=== PATIENT | female | born 1955 | race African-American/Black ===

== ENCOUNTER 2019-07-17 16:27 | Inpatient (IN) | payer OTHER ==
[~2019-07-17] VITALS: Ht 157.5 cm; Wt 98.0 kg
[2019-07-17 16:22] VITALS: BP 118/74
[2019-07-17] MEDS ORDERED: ALBUTEROL SULFATE HFA 90 MCG/PUFF 8 GM INHALER IH PRN (17:15)
[2019-07-17 18:08] VITALS: BP 118/74
[2019-07-17 18:15] LABS: BASOPHILS % (AUTO) 1.1 % (0.0-2.0); EOSINOPHILS % (AUTO) 1.5 % (1.0-6.0); HEMATOCRIT 44.7 % (36-46); HEMOGLOBIN 14.1 g/dL (12.0-16.0); LYMPHOCYTES # (AUTO) 1.4 K/uL (1.0-4.8); LYMPHOCYTES % (AUTO) 27.3 % (22.0-44.0); MEAN CORPUSCULAR HEMOGLOBIN 25.1 pg (26.0-34.0); MEAN CORPUSCULAR HGB CONC 31.5 G/dL (31.0-37.0); MEAN CORPUSCULAR VOLUME 80 fL (80-100); MONOCYTES # (AUTO) 0.4 K/uL (0.1-1.0); MONOCYTES % (AUTO) 7.7 % (2.0-9.0); NEUTROPHILS # (AUTO) 3.3 K/uL (1.8-7.7); NEUTROPHILS % (AUTO) 62.4 % (40.0-70.0); PLATELET COUNT (AUTO) 257 K/uL (150-450); RED BLOOD CELL COUNT(AUTO) 5.59 MIL/uL (4.00-5.20); RED CELL DISTRIBUTION WIDTH 14.5 % (11.5-14.5)
[2019-07-17 18:30] LABS: ALANINE AMINOTRANSFERASE 22 U/L (12-78); ALBUMIN 3.4 g/dL (3.4-5.0); ALKALINE PHOSPHATASE 101 U/L (46-116); ANION GAP 12 mmol/L (8-16); ASPARTATE AMINOTRANSFERASE 21 U/L (15-37); BILIRUBIN,TOTAL 0.3 mg/dL (0.1-1.0); CALCIUM, TOTAL 10.4 mg/dL (8.8-10.5); CARBON DIOXIDE 25 mmol/L (22-29); CHLORIDE 106 mmol/L (98-107); CREATININE 0.76 mg/dL (0.60-1.30); GLOMERULAR FILTR. RATE CALC > 60 mL/min (>60); GLUCOSE,RANDOM 66 mg/dL (70-110); POTASSIUM 4.3 mmol/L (3.5-5.1); SODIUM SERUM 143 mmol/L (136-145); TOTAL PROTEIN, SERUM 8.1 g/dL (6.4-8.2); UREA NITROGEN, BLOOD 20 mg/dL (7-18)
[2019-07-17 20:32] VITALS: BP 106/69
[2019-07-17] MEDS: SENNA 187 MG TABLET PO SCH (20:35)
[2019-07-17] MEDS: DOCUSATE SODIUM 100 MG CAPSULE PO SCH (20:35)
[2019-07-17] MEDS: FAMOTIDINE 20 MG TABLET PO SCH (20:35)
[2019-07-17] MEDS: CARVEDILOL 6.25 MG TABLET PO SCH (20:35)
[2019-07-17] MEDS: GABAPENTIN 100 MG CAPSULE PO SCH (20:35)
[2019-07-17] MEDS ORDERED: FLUTICASONE/VILANTEROL 100-25 MCG/INH INHALER [14] IH SCH (21:00)
[2019-07-18] VITALS: BP 116/80
[2019-07-18] MEDS: LISINOPRIL 10 MG TABLET PO SCH (09:00)
[2019-07-18] MEDS: FLUTICASONE/VILANTEROL 200-25 MCG/INH INHALER [14] IH SCH (09:08)
[2019-07-18] MEDS: DOCUSATE SODIUM 100 MG CAPSULE PO SCH ×2 (09:09→20:34)
[2019-07-18] MEDS: ENOXAPARIN SODIUM 40 MG/0.4 ML PF SYRINGE SQ SCH (09:09)
[2019-07-18] MEDS: CARVEDILOL 6.25 MG TABLET PO SCH ×3 (09:10→20:59)
[2019-07-18] MEDS: FUROSEMIDE 20 MG TABLET PO SCH (09:10)
[2019-07-18] MEDS: FAMOTIDINE 20 MG TABLET PO SCH ×2 (09:10→20:34)
[2019-07-18] MEDS: SPIRONOLACTONE 25 MG TABLET PO SCH (09:10)
[2019-07-18] MEDS: GABAPENTIN 100 MG CAPSULE PO SCH ×3 (09:10→20:34)
[2019-07-18] MEDS: ATORVASTATIN CALCIUM 40 MG TABLET PO SCH (09:10)
[2019-07-18] MEDS: CYANOCOBALAMIN 100 MCG TABLET PO SCH (09:11)
[2019-07-18] MEDS: ASPIRIN 81 MG CHEWABLE TABLET PO SCH (09:11)
[2019-07-18 09:35] VITALS: BP 129/77
[2019-07-18 12:20] VITALS: BP 104/59
[2019-07-18] MEDS: ISOSORBIDE MONONITRATE 60 MG ER TABLET PO SCH (12:21)
[2019-07-18 16:20] VITALS: BP 106/56
[2019-07-18] MEDS: ACETAMINOPHEN 325 MG TABLET PO PRN (17:02)
[2019-07-18 20:25] VITALS: BP 128/69
[2019-07-18] MEDS: SENNA 187 MG TABLET PO SCH (20:34)
[2019-07-19] VITALS: BP 116/69
[2019-07-19] MEDS: ACETAMINOPHEN 325 MG TABLET PO PRN ×2 (06:19→19:18)
[2019-07-19 07:15] VITALS: BP 111/73
[2019-07-19] MEDS: DOCUSATE SODIUM 100 MG CAPSULE PO SCH ×2 (08:24→19:19)
[2019-07-19] MEDS: ASPIRIN 81 MG CHEWABLE TABLET PO SCH (08:24)
[2019-07-19] MEDS: CARVEDILOL 6.25 MG TABLET PO SCH ×2 (08:24→19:19)
[2019-07-19] MEDS: GABAPENTIN 100 MG CAPSULE PO SCH ×3 (08:25→19:18)
[2019-07-19] MEDS: SPIRONOLACTONE 25 MG TABLET PO SCH (08:25)
[2019-07-19] MEDS: ISOSORBIDE MONONITRATE 60 MG ER TABLET PO SCH (08:25)
[2019-07-19] MEDS: LISINOPRIL 10 MG TABLET PO SCH (08:25)
[2019-07-19] MEDS: FUROSEMIDE 20 MG TABLET PO SCH (08:25)
[2019-07-19] MEDS: ENOXAPARIN SODIUM 40 MG/0.4 ML PF SYRINGE SQ SCH (08:25)
[2019-07-19] MEDS: ATORVASTATIN CALCIUM 40 MG TABLET PO SCH (08:25)
[2019-07-19] MEDS: CYANOCOBALAMIN 100 MCG TABLET PO SCH (08:25)
[2019-07-19] MEDS: FAMOTIDINE 20 MG TABLET PO SCH ×2 (08:25→19:19)
[2019-07-19] MEDS: FLUTICASONE/VILANTEROL 200-25 MCG/INH INHALER [14] IH SCH (08:25)
[2019-07-19 15:02] VITALS: BP 114/48
[2019-07-19 19:18] VITALS: BP 118/61
[2019-07-19] MEDS: SENNA 187 MG TABLET PO SCH (19:18)
[2019-07-20 00:15] VITALS: BP 119/56
[2019-07-20] MEDS: ACETAMINOPHEN 325 MG TABLET PO PRN ×2 (08:36→12:36)
[2019-07-20 09:00] VITALS: BP 112/65
[2019-07-20] MEDS ORDERED: DOCUSATE SODIUM 100 MG CAPSULE PO SCH (09:00)
[2019-07-20] MEDS: ISOSORBIDE MONONITRATE 60 MG ER TABLET PO SCH (09:10)
[2019-07-20] MEDS: ATORVASTATIN CALCIUM 40 MG TABLET PO SCH (09:10)
[2019-07-20] MEDS: SPIRONOLACTONE 25 MG TABLET PO SCH (09:10)
[2019-07-20] MEDS: FLUTICASONE/VILANTEROL 200-25 MCG/INH INHALER [14] IH SCH (09:10)
[2019-07-20] MEDS: FAMOTIDINE 20 MG TABLET PO SCH ×2 (09:12→20:19)
[2019-07-20] MEDS: FUROSEMIDE 20 MG TABLET PO SCH (09:12)
[2019-07-20] MEDS: CYANOCOBALAMIN 100 MCG TABLET PO SCH (09:12)
[2019-07-20] MEDS: LISINOPRIL 10 MG TABLET PO SCH (09:14)
[2019-07-20] MEDS: ASPIRIN 81 MG CHEWABLE TABLET PO SCH (09:14)
[2019-07-20] MEDS: CARVEDILOL 6.25 MG TABLET PO SCH ×2 (09:14→20:39)
[2019-07-20] MEDS: ENOXAPARIN SODIUM 40 MG/0.4 ML PF SYRINGE SQ SCH (09:15)
[2019-07-20] MEDS: GABAPENTIN 100 MG CAPSULE PO SCH ×3 (09:18→20:19)
[2019-07-20] MEDS: DOCUSATE SODIUM 250 MG CAPSULE PO SCH ×2 (10:28→20:19)
[2019-07-20 19:20] VITALS: BP 144/76
[2019-07-20] MEDS ORDERED: NITROGLYCERIN 0.4 MG SUBLINGUAL TABLET #25 SL PRN (19:30)
[2019-07-20 20:19] VITALS: BP 139/77
[2019-07-20] MEDS: SENNA 187 MG TABLET PO SCH (20:19)
[2019-07-21 05:30] VITALS: BP 117/53
[2019-07-21] MEDS: ACETAMINOPHEN 325 MG TABLET PO PRN ×3 (05:30→20:39)
[2019-07-21 07:46] VITALS: BP 143/85
[2019-07-21] MEDS: FAMOTIDINE 20 MG TABLET PO SCH ×2 (08:19→20:27)
[2019-07-21] MEDS: DOCUSATE SODIUM 250 MG CAPSULE PO SCH ×2 (08:20→20:27)
[2019-07-21] MEDS: ENOXAPARIN SODIUM 40 MG/0.4 ML PF SYRINGE SQ SCH (08:20)
[2019-07-21] MEDS: GABAPENTIN 100 MG CAPSULE PO SCH ×3 (08:20→20:27)
[2019-07-21] MEDS: FUROSEMIDE 20 MG TABLET PO SCH (08:21)
[2019-07-21] MEDS: ATORVASTATIN CALCIUM 40 MG TABLET PO SCH (08:21)
[2019-07-21] MEDS: LISINOPRIL 10 MG TABLET PO SCH (08:21)
[2019-07-21] MEDS: CARVEDILOL 6.25 MG TABLET PO SCH ×2 (08:21→20:27)
[2019-07-21] MEDS: CYANOCOBALAMIN 100 MCG TABLET PO SCH (08:21)
[2019-07-21] MEDS: ISOSORBIDE MONONITRATE 60 MG ER TABLET PO SCH (08:22)
[2019-07-21] MEDS: SPIRONOLACTONE 25 MG TABLET PO SCH (08:22)
[2019-07-21] MEDS: ASPIRIN 81 MG CHEWABLE TABLET PO SCH (08:22)
[2019-07-21] MEDS: FLUTICASONE/VILANTEROL 200-25 MCG/INH INHALER [14] IH SCH (08:22)
[2019-07-21] MEDS: DICLOFENAC SODIUM 1% 100 GM GEL [4GM] TP SCH ×2 (15:27→20:28)
[2019-07-21 15:40] VITALS: BP 110/57
[2019-07-21] MEDS: MELATONIN 5 MG TABLET PO PRN (20:27)
[2019-07-21] MEDS: SENNA 187 MG TABLET PO SCH (20:28)
[2019-07-21 20:39] VITALS: BP 124/76
[2019-07-21 21:31] VITALS: BP 132/76
[2019-07-22] MEDS ORDERED: METO-558 PO (05:11)
[2019-07-22] MEDS ORDERED: ATOR40TA28 PO (05:11)
[2019-07-22] MEDS ORDERED: ISOS60TA4 PO (05:11)
[2019-07-22] MEDS ORDERED: GABA-529 PO (05:11)
[2019-07-22] MEDS ORDERED: CHL25 PO (05:11)
[2019-07-22] MEDS ORDERED: CYAN100T3 PO ×2 (05:11→18:02)
[2019-07-22] MEDS: ACETAMINOPHEN 325 MG TABLET PO PRN ×2 (07:07→15:50)
[2019-07-22 07:08] VITALS: BP 129/72
[2019-07-22] MEDS: DICLOFENAC SODIUM 1% 100 GM GEL [4GM] TP SCH ×3 (08:03→20:35)
[2019-07-22] MEDS: GABAPENTIN 100 MG CAPSULE PO SCH ×3 (08:03→20:36)
[2019-07-22] MEDS: FLUTICASONE/VILANTEROL 200-25 MCG/INH INHALER [14] IH SCH (08:03)
[2019-07-22] MEDS: CYANOCOBALAMIN 100 MCG TABLET PO SCH (08:04)
[2019-07-22] MEDS: SPIRONOLACTONE 25 MG TABLET PO SCH (08:04)
[2019-07-22] MEDS: CARVEDILOL 6.25 MG TABLET PO SCH ×2 (08:04→20:35)
[2019-07-22] MEDS: ISOSORBIDE MONONITRATE 60 MG ER TABLET PO SCH (08:04)
[2019-07-22] MEDS: ATORVASTATIN CALCIUM 40 MG TABLET PO SCH (08:04)
[2019-07-22] MEDS: FAMOTIDINE 20 MG TABLET PO SCH ×2 (08:04→20:35)
[2019-07-22] MEDS: LISINOPRIL 10 MG TABLET PO SCH (08:04)
[2019-07-22] MEDS: FUROSEMIDE 20 MG TABLET PO SCH (08:04)
[2019-07-22] MEDS: ASPIRIN 81 MG CHEWABLE TABLET PO SCH (08:04)
[2019-07-22] MEDS: DOCUSATE SODIUM 250 MG CAPSULE PO SCH ×2 (08:04→20:35)
[2019-07-22] MEDS: ENOXAPARIN SODIUM 40 MG/0.4 ML PF SYRINGE SQ SCH (08:40)
[2019-07-22] MEDS: MULTIVITAMINS WITH MINERALS, THERAPEUTIC TABLET PO SCH (11:51)
[2019-07-22 15:19] VITALS: BP 128/78
[2019-07-22] MEDS ORDERED: NITR0.4T50 SL (18:02)
[2019-07-22] MEDS ORDERED: ALBU8HFA IH (18:53)
[2019-07-22] MEDS ORDERED: MOME13HF2 IH (18:53)
[2019-07-22] MEDS: SENNA 187 MG TABLET PO SCH (20:35)
[2019-07-22] MEDS: MELATONIN 5 MG TABLET PO PRN (20:35)
[2019-07-22 21:44] VITALS: BP 137/84
[2019-07-23 03:08] VITALS: BP 130/73
[2019-07-23 07:46] VITALS: BP 128/58
[2019-07-23] MEDS: FLUTICASONE/VILANTEROL 200-25 MCG/INH INHALER [14] IH SCH (08:34)
[2019-07-23] MEDS: FAMOTIDINE 20 MG TABLET PO SCH ×2 (08:34→20:19)
[2019-07-23] MEDS: GABAPENTIN 100 MG CAPSULE PO SCH ×3 (08:34→20:19)
[2019-07-23] MEDS: ENOXAPARIN SODIUM 40 MG/0.4 ML PF SYRINGE SQ SCH (08:34)
[2019-07-23] MEDS: CARVEDILOL 6.25 MG TABLET PO SCH ×2 (08:34→20:19)
[2019-07-23] MEDS: ATORVASTATIN CALCIUM 40 MG TABLET PO SCH (08:34)
[2019-07-23] MEDS: DOCUSATE SODIUM 250 MG CAPSULE PO SCH ×2 (08:35→20:19)
[2019-07-23] MEDS: ISOSORBIDE MONONITRATE 60 MG ER TABLET PO SCH (08:35)
[2019-07-23] MEDS: SPIRONOLACTONE 25 MG TABLET PO SCH (08:35)
[2019-07-23] MEDS: CYANOCOBALAMIN 100 MCG TABLET PO SCH (08:35)
[2019-07-23] MEDS: LISINOPRIL 10 MG TABLET PO SCH (08:35)
[2019-07-23] MEDS: MULTIVITAMINS WITH MINERALS, THERAPEUTIC TABLET PO SCH (08:35)
[2019-07-23] MEDS: ASPIRIN 81 MG CHEWABLE TABLET PO SCH (08:35)
[2019-07-23] MEDS: DICLOFENAC SODIUM 1% 100 GM GEL [4GM] TP SCH ×3 (08:36→20:19)
[2019-07-23] MEDS: FUROSEMIDE 20 MG TABLET PO SCH (08:36)
[2019-07-23] MEDS ORDERED: POLYETHYLENE GLYCOL 3350 17 GM PACKET PO PRN (14:30)
[2019-07-23 15:28] VITALS: BP 116/63
[2019-07-23 16:49] VITALS: BP 129/68
[2019-07-23] MEDS: MELATONIN 5 MG TABLET PO PRN (20:19)
[2019-07-23] MEDS: SENNA 187 MG TABLET PO SCH (20:19)
[2019-07-23 21:09] VITALS: BP 129/68
[2019-07-24 04:49] VITALS: BP 113/60
[2019-07-24] MEDS: ACETAMINOPHEN 325 MG TABLET PO PRN ×2 (04:49→09:26)
[2019-07-24 07:44] VITALS: BP 148/89
[2019-07-24] MEDS: LISINOPRIL 10 MG TABLET PO SCH (07:51)
[2019-07-24] MEDS: ENOXAPARIN SODIUM 40 MG/0.4 ML PF SYRINGE SQ SCH (07:51)
[2019-07-24] MEDS: MULTIVITAMINS WITH MINERALS, THERAPEUTIC TABLET PO SCH (07:51)
[2019-07-24] MEDS: SPIRONOLACTONE 25 MG TABLET PO SCH (07:51)
[2019-07-24] MEDS: FAMOTIDINE 20 MG TABLET PO SCH ×2 (07:51→20:21)
[2019-07-24] MEDS: DICLOFENAC SODIUM 1% 100 GM GEL [4GM] TP SCH ×3 (07:51→20:21)
[2019-07-24] MEDS: ISOSORBIDE MONONITRATE 60 MG ER TABLET PO SCH (07:52)
[2019-07-24] MEDS: FUROSEMIDE 20 MG TABLET PO SCH (07:52)
[2019-07-24] MEDS: ASPIRIN 81 MG CHEWABLE TABLET PO SCH (07:52)
[2019-07-24] MEDS: GABAPENTIN 100 MG CAPSULE PO SCH ×3 (07:52→20:21)
[2019-07-24] MEDS: CARVEDILOL 6.25 MG TABLET PO SCH ×2 (07:52→20:21)
[2019-07-24] MEDS: ATORVASTATIN CALCIUM 40 MG TABLET PO SCH (07:52)
[2019-07-24] MEDS: FLUTICASONE/VILANTEROL 200-25 MCG/INH INHALER [14] IH SCH (07:52)
[2019-07-24] MEDS: DOCUSATE SODIUM 250 MG CAPSULE PO SCH ×2 (07:52→20:21)
[2019-07-24] MEDS: CYANOCOBALAMIN 100 MCG TABLET PO SCH (07:53)
[2019-07-24 16:11] VITALS: BP 145/72
[2019-07-24] MEDS: MELATONIN 5 MG TABLET PO PRN (20:21)
[2019-07-24] MEDS: SENNA 187 MG TABLET PO SCH (20:21)
[2019-07-24 21:03] VITALS: BP 139/70
[2019-07-25 04:06] VITALS: BP 134/56
[2019-07-25] MEDS: ACETAMINOPHEN 325 MG TABLET PO PRN (08:00)
[2019-07-25 08:05] VITALS: BP 154/99
[2019-07-25] MEDS: FLUTICASONE/VILANTEROL 200-25 MCG/INH INHALER [14] IH SCH (08:17)
[2019-07-25] MEDS: GABAPENTIN 100 MG CAPSULE PO SCH ×3 (08:18→20:23)
[2019-07-25] MEDS: CARVEDILOL 6.25 MG TABLET PO SCH ×2 (08:18→20:24)
[2019-07-25] MEDS: MULTIVITAMINS WITH MINERALS, THERAPEUTIC TABLET PO SCH (08:18)
[2019-07-25] MEDS: FAMOTIDINE 20 MG TABLET PO SCH ×2 (08:18→20:24)
[2019-07-25] MEDS: FUROSEMIDE 20 MG TABLET PO SCH (08:18)
[2019-07-25] MEDS: DOCUSATE SODIUM 250 MG CAPSULE PO SCH ×2 (08:18→20:27)
[2019-07-25] MEDS: LISINOPRIL 10 MG TABLET PO SCH (08:18)
[2019-07-25] MEDS: ATORVASTATIN CALCIUM 40 MG TABLET PO SCH (08:18)
[2019-07-25] MEDS: ASPIRIN 81 MG CHEWABLE TABLET PO SCH (08:18)
[2019-07-25] MEDS: ENOXAPARIN SODIUM 40 MG/0.4 ML PF SYRINGE SQ SCH (08:18)
[2019-07-25] MEDS: DICLOFENAC SODIUM 1% 100 GM GEL [4GM] TP SCH ×3 (08:18→20:24)
[2019-07-25] MEDS: ISOSORBIDE MONONITRATE 60 MG ER TABLET PO SCH (08:19)
[2019-07-25] MEDS: SPIRONOLACTONE 25 MG TABLET PO SCH (08:19)
[2019-07-25] MEDS: CYANOCOBALAMIN 100 MCG TABLET PO SCH (08:19)
[2019-07-25] MEDS ORDERED: KETOROLAC TROMETHAMINE 15 MG/ML VIAL IM ONE (10:00)
[2019-07-25 16:20] VITALS: BP 147/80
[2019-07-25] MEDS: MELATONIN 5 MG TABLET PO PRN (20:23)
[2019-07-25] MEDS: SENNA 187 MG TABLET PO SCH (20:24)
[2019-07-25 21:58] VITALS: BP 150/81
[2019-07-26 03:32] VITALS: BP 145/73
[2019-07-26] MEDS: DOCUSATE SODIUM 250 MG CAPSULE PO SCH ×2 (08:26→20:22)
[2019-07-26] MEDS: ENOXAPARIN SODIUM 40 MG/0.4 ML PF SYRINGE SQ SCH (08:26)
[2019-07-26] MEDS: FLUTICASONE/VILANTEROL 200-25 MCG/INH INHALER [14] IH SCH (08:26)
[2019-07-26] MEDS: ISOSORBIDE MONONITRATE 60 MG ER TABLET PO SCH (08:26)
[2019-07-26] MEDS: MULTIVITAMINS WITH MINERALS, THERAPEUTIC TABLET PO SCH (08:26)
[2019-07-26] MEDS: ATORVASTATIN CALCIUM 40 MG TABLET PO SCH (08:27)
[2019-07-26] MEDS: FAMOTIDINE 20 MG TABLET PO SCH ×2 (08:27→20:21)
[2019-07-26] MEDS: LISINOPRIL 10 MG TABLET PO SCH (08:27)
[2019-07-26] MEDS: CARVEDILOL 6.25 MG TABLET PO SCH ×2 (08:27→20:22)
[2019-07-26] MEDS: CYANOCOBALAMIN 100 MCG TABLET PO SCH (08:27)
[2019-07-26] MEDS: ASPIRIN 81 MG CHEWABLE TABLET PO SCH (08:27)
[2019-07-26] MEDS: GABAPENTIN 100 MG CAPSULE PO SCH ×3 (08:27→20:22)
[2019-07-26 08:30] VITALS: BP 142/76
[2019-07-26] MEDS: DICLOFENAC SODIUM 1% 100 GM GEL [4GM] TP SCH ×3 (08:30→20:20)
[2019-07-26] MEDS: ACETAMINOPHEN 325 MG TABLET PO PRN (08:30)
[2019-07-26] MEDS: FUROSEMIDE 20 MG TABLET PO SCH (08:30)
[2019-07-26] MEDS: SPIRONOLACTONE 25 MG TABLET PO SCH (10:02)
[2019-07-26] MEDS ORDERED: KETOROLAC TROMETHAMINE 15 MG/ML VIAL IM ONE (10:45)
[2019-07-26 11:10] LABS: BASOPHILS % (AUTO) 1.2 % (0.0-2.0); EOSINOPHILS % (AUTO) 1.2 % (1.0-6.0); HEMATOCRIT 40.6 % (36-46); HEMOGLOBIN 12.9 g/dL (12.0-16.0); LYMPHOCYTES # (AUTO) 1.2 K/uL (1.0-4.8); LYMPHOCYTES % (AUTO) 26.6 % (22.0-44.0); MEAN CORPUSCULAR HEMOGLOBIN 25.4 pg (26.0-34.0); MEAN CORPUSCULAR HGB CONC 31.8 G/dL (31.0-37.0); MEAN CORPUSCULAR VOLUME 80 fL (80-100); MONOCYTES # (AUTO) 0.4 K/uL (0.1-1.0); MONOCYTES % (AUTO) 9.2 % (2.0-9.0); NEUTROPHILS # (AUTO) 2.7 K/uL (1.8-7.7); NEUTROPHILS % (AUTO) 61.8 % (40.0-70.0); PLATELET COUNT (AUTO) 257 K/uL (150-450); RED BLOOD CELL COUNT(AUTO) 5.09 MIL/uL (4.00-5.20)
[2019-07-26 11:20] LABS: ANION GAP 5 mmol/L (8-16); CALCIUM, TOTAL 9.7 mg/dL (8.8-10.5); CARBON DIOXIDE 29 mmol/L (22-29); CHLORIDE 111 mmol/L (98-107); CREATININE 0.85 mg/dL (0.60-1.30); GLOMERULAR FILTR. RATE CALC > 60 mL/min (>60); GLUCOSE,RANDOM 86 mg/dL (70-110); SODIUM SERUM 145 mmol/L (136-145); UREA NITROGEN, BLOOD 14 mg/dL (7-18)
[2019-07-26 16:07] VITALS: BP 133/71
[2019-07-26 20:20] VITALS: BP 127/72
[2019-07-26] MEDS: SENNA 187 MG TABLET PO SCH (20:22)
[2019-07-26] MEDS: MELATONIN 5 MG TABLET PO PRN (20:22)
[2019-07-27 03:15] VITALS: BP 142/73
[2019-07-27 08:52] VITALS: BP 130/86
[2019-07-27] MEDS: DICLOFENAC SODIUM 1% 100 GM GEL [4GM] TP SCH ×3 (08:52→19:56)
[2019-07-27] MEDS: ACETAMINOPHEN 325 MG TABLET PO PRN ×2 (08:52→20:08)
[2019-07-27] MEDS: FLUTICASONE/VILANTEROL 200-25 MCG/INH INHALER [14] IH SCH (08:52)
[2019-07-27] MEDS: FAMOTIDINE 20 MG TABLET PO SCH ×2 (08:52→19:56)
[2019-07-27] MEDS: ENOXAPARIN SODIUM 40 MG/0.4 ML PF SYRINGE SQ SCH (08:52)
[2019-07-27] MEDS: LISINOPRIL 10 MG TABLET PO SCH (08:53)
[2019-07-27] MEDS: MULTIVITAMINS WITH MINERALS, THERAPEUTIC TABLET PO SCH (08:53)
[2019-07-27] MEDS: GABAPENTIN 100 MG CAPSULE PO SCH ×3 (08:53→19:56)
[2019-07-27] MEDS: ATORVASTATIN CALCIUM 40 MG TABLET PO SCH (08:53)
[2019-07-27] MEDS: DOCUSATE SODIUM 250 MG CAPSULE PO SCH ×2 (08:53→19:56)
[2019-07-27] MEDS: ASPIRIN 81 MG CHEWABLE TABLET PO SCH (08:53)
[2019-07-27] MEDS: SPIRONOLACTONE 25 MG TABLET PO SCH (08:53)
[2019-07-27] MEDS: CYANOCOBALAMIN 100 MCG TABLET PO SCH (08:53)
[2019-07-27] MEDS: FUROSEMIDE 20 MG TABLET PO SCH (08:54)
[2019-07-27] MEDS: ISOSORBIDE MONONITRATE 60 MG ER TABLET PO SCH (09:00)
[2019-07-27] MEDS: CARVEDILOL 6.25 MG TABLET PO SCH ×2 (09:00→19:56)
[2019-07-27 16:03] VITALS: BP 122/85
[2019-07-27 19:56] VITALS: BP 124/72
[2019-07-27] MEDS: MELATONIN 5 MG TABLET PO PRN (19:56)
[2019-07-27] MEDS: SENNA 187 MG TABLET PO SCH (19:56)
[2019-07-28 01:00] VITALS: BP 141/83
[2019-07-28 07:42] VITALS: BP 143/92
[2019-07-28] MEDS: CYANOCOBALAMIN 100 MCG TABLET PO SCH (08:03)
[2019-07-28] MEDS: DOCUSATE SODIUM 250 MG CAPSULE PO SCH ×2 (08:03→20:05)
[2019-07-28] MEDS: ENOXAPARIN SODIUM 40 MG/0.4 ML PF SYRINGE SQ SCH (08:03)
[2019-07-28] MEDS: GABAPENTIN 100 MG CAPSULE PO SCH ×3 (08:03→20:05)
[2019-07-28] MEDS: FLUTICASONE/VILANTEROL 200-25 MCG/INH INHALER [14] IH SCH (08:03)
[2019-07-28] MEDS: ATORVASTATIN CALCIUM 40 MG TABLET PO SCH (08:03)
[2019-07-28] MEDS: MULTIVITAMINS WITH MINERALS, THERAPEUTIC TABLET PO SCH (08:03)
[2019-07-28] MEDS: LISINOPRIL 10 MG TABLET PO SCH (08:04)
[2019-07-28] MEDS: FUROSEMIDE 20 MG TABLET PO SCH (08:04)
[2019-07-28] MEDS: ISOSORBIDE MONONITRATE 60 MG ER TABLET PO SCH (08:04)
[2019-07-28] MEDS: FAMOTIDINE 20 MG TABLET PO SCH ×2 (08:04→20:04)
[2019-07-28] MEDS: ASPIRIN 81 MG CHEWABLE TABLET PO SCH (08:04)
[2019-07-28] MEDS: SPIRONOLACTONE 25 MG TABLET PO SCH (08:05)
[2019-07-28] MEDS: CARVEDILOL 6.25 MG TABLET PO SCH ×2 (08:05→20:05)
[2019-07-28] MEDS: DICLOFENAC SODIUM 1% 100 GM GEL [4GM] TP SCH ×3 (09:28→20:04)
[2019-07-28 09:48] VITALS: BP 137/76
[2019-07-28 16:00] VITALS: BP 116/56
[2019-07-28] MEDS: ACETAMINOPHEN 325 MG TABLET PO PRN (16:00)
[2019-07-28 20:00] VITALS: BP 118/56
[2019-07-28] MEDS: MELATONIN 5 MG TABLET PO PRN (20:05)
[2019-07-28] MEDS: SENNA 187 MG TABLET PO SCH (20:05)
[2019-07-29 02:13] VITALS: BP 130/70
[2019-07-29] MEDS: MULTIVITAMINS WITH MINERALS, THERAPEUTIC TABLET PO SCH (08:04)
[2019-07-29] MEDS: DICLOFENAC SODIUM 1% 100 GM GEL [4GM] TP SCH ×3 (08:04→20:55)
[2019-07-29] MEDS: ENOXAPARIN SODIUM 40 MG/0.4 ML PF SYRINGE SQ SCH (08:04)
[2019-07-29] MEDS: ACETAMINOPHEN 325 MG TABLET PO PRN ×2 (08:05→20:55)
[2019-07-29] MEDS: FAMOTIDINE 20 MG TABLET PO SCH ×2 (08:05→20:56)
[2019-07-29] MEDS: ATORVASTATIN CALCIUM 40 MG TABLET PO SCH (08:05)
[2019-07-29] MEDS: FUROSEMIDE 20 MG TABLET PO SCH (08:05)
[2019-07-29] MEDS: CARVEDILOL 6.25 MG TABLET PO SCH ×2 (08:05→20:56)
[2019-07-29] MEDS: DOCUSATE SODIUM 250 MG CAPSULE PO SCH ×2 (08:06→20:56)
[2019-07-29] MEDS: ASPIRIN 81 MG CHEWABLE TABLET PO SCH (08:06)
[2019-07-29] MEDS: CYANOCOBALAMIN 100 MCG TABLET PO SCH (08:06)
[2019-07-29] MEDS: GABAPENTIN 100 MG CAPSULE PO SCH ×3 (08:06→20:56)
[2019-07-29] MEDS: LISINOPRIL 10 MG TABLET PO SCH (08:06)
[2019-07-29] MEDS: ISOSORBIDE MONONITRATE 60 MG ER TABLET PO SCH (08:07)
[2019-07-29] MEDS: SPIRONOLACTONE 25 MG TABLET PO SCH (08:08)
[2019-07-29 08:23] VITALS: BP 146/88
[2019-07-29] MEDS: FLUTICASONE/VILANTEROL 200-25 MCG/INH INHALER [14] IH SCH (13:14)
[2019-07-29 16:30] VITALS: BP 128/91
[2019-07-29 20:55] VITALS: BP 148/90
[2019-07-29] MEDS: SENNA 187 MG TABLET PO SCH (20:56)
[2019-07-29] MEDS: MELATONIN 5 MG TABLET PO PRN (20:56)
[2019-07-30 01:30] VITALS: BP 140/90
[2019-07-30 06:54] LABS: EOSINOPHILS % (AUTO) 1.3 % (1.0-6.0); HEMATOCRIT 40.9 % (36-46); LYMPHOCYTES # (AUTO) 1.7 K/uL (1.0-4.8); LYMPHOCYTES % (AUTO) 27.4 % (22.0-44.0); MEAN CORPUSCULAR HEMOGLOBIN 24.8 pg (26.0-34.0); MEAN CORPUSCULAR HGB CONC 30.7 G/dL (31.0-37.0); MEAN CORPUSCULAR VOLUME 81 fL (80-100); MONOCYTES # (AUTO) 0.7 K/uL (0.1-1.0); MONOCYTES % (AUTO) 11.4 % (2.0-9.0); NEUTROPHILS # (AUTO) 3.7 K/uL (1.8-7.7); NEUTROPHILS % (AUTO) 58.9 % (40.0-70.0); PLATELET COUNT (AUTO) 232 K/uL (150-450); RED BLOOD CELL COUNT(AUTO) 5.08 MIL/uL (4.00-5.20); RED CELL DISTRIBUTION WIDTH 15.1 % (11.5-14.5)
[2019-07-30 07:15] LABS: ANION GAP 7 mmol/L (8-16); CALCIUM, TOTAL 9.5 mg/dL (8.8-10.5); CARBON DIOXIDE 27 mmol/L (22-29); CHLORIDE 110 mmol/L (98-107); CREATININE 0.78 mg/dL (0.60-1.30); GLOMERULAR FILTR. RATE CALC > 60 mL/min (>60); GLUCOSE,RANDOM 91 mg/dL (70-110); POTASSIUM 3.9 mmol/L (3.5-5.1); SODIUM SERUM 144 mmol/L (136-145); UREA NITROGEN, BLOOD 15 mg/dL (7-18)
[2019-07-30] MEDS: ISOSORBIDE MONONITRATE 60 MG ER TABLET PO SCH (08:25)
[2019-07-30] MEDS: FAMOTIDINE 20 MG TABLET PO SCH ×2 (08:25→21:14)
[2019-07-30] MEDS: SPIRONOLACTONE 25 MG TABLET PO SCH (08:25)
[2019-07-30] MEDS: ENOXAPARIN SODIUM 40 MG/0.4 ML PF SYRINGE SQ SCH (08:25)
[2019-07-30] MEDS: LISINOPRIL 10 MG TABLET PO SCH (08:25)
[2019-07-30] MEDS: DICLOFENAC SODIUM 1% 100 GM GEL [4GM] TP SCH ×3 (08:25→21:14)
[2019-07-30] MEDS: FLUTICASONE/VILANTEROL 200-25 MCG/INH INHALER [14] IH SCH (08:25)
[2019-07-30] MEDS: GABAPENTIN 100 MG CAPSULE PO SCH ×3 (08:26→21:15)
[2019-07-30] MEDS: ATORVASTATIN CALCIUM 40 MG TABLET PO SCH (08:26)
[2019-07-30] MEDS: DOCUSATE SODIUM 250 MG CAPSULE PO SCH ×2 (08:26→21:14)
[2019-07-30] MEDS: MULTIVITAMINS WITH MINERALS, THERAPEUTIC TABLET PO SCH (08:26)
[2019-07-30] MEDS: CARVEDILOL 6.25 MG TABLET PO SCH ×2 (08:26→21:15)
[2019-07-30] MEDS: CYANOCOBALAMIN 100 MCG TABLET PO SCH (08:26)
[2019-07-30 08:27] VITALS: BP 145/73
[2019-07-30] MEDS: ASPIRIN 81 MG CHEWABLE TABLET PO SCH (08:27)
[2019-07-30] MEDS: FUROSEMIDE 20 MG TABLET PO SCH (08:29)
[2019-07-30 16:00] VITALS: BP 140/68
[2019-07-30 21:10] VITALS: BP 130/73
[2019-07-30] MEDS: MELATONIN 5 MG TABLET PO PRN (21:14)
[2019-07-30] MEDS: SENNA 187 MG TABLET PO SCH (21:15)
[2019-07-30] MEDS: ACETAMINOPHEN 325 MG TABLET PO PRN (21:19)
[2019-07-31 00:53] VITALS: BP 122/60
[2019-07-31 07:30] VITALS: BP 143/90
[2019-07-31] MEDS: CARVEDILOL 6.25 MG TABLET PO SCH ×2 (07:51→20:20)
[2019-07-31] MEDS: ASPIRIN 81 MG CHEWABLE TABLET PO SCH (07:51)
[2019-07-31] MEDS: FAMOTIDINE 20 MG TABLET PO SCH ×2 (07:51→20:20)
[2019-07-31] MEDS: ATORVASTATIN CALCIUM 40 MG TABLET PO SCH (07:51)
[2019-07-31] MEDS: GABAPENTIN 100 MG CAPSULE PO SCH ×3 (07:51→20:20)
[2019-07-31] MEDS: MULTIVITAMINS WITH MINERALS, THERAPEUTIC TABLET PO SCH (07:51)
[2019-07-31] MEDS: ENOXAPARIN SODIUM 40 MG/0.4 ML PF SYRINGE SQ SCH (07:52)
[2019-07-31] MEDS: FLUTICASONE/VILANTEROL 200-25 MCG/INH INHALER [14] IH SCH (07:52)
[2019-07-31] MEDS: ISOSORBIDE MONONITRATE 60 MG ER TABLET PO SCH (07:52)
[2019-07-31] MEDS: LISINOPRIL 10 MG TABLET PO SCH (07:52)
[2019-07-31] MEDS: CYANOCOBALAMIN 100 MCG TABLET PO SCH (07:52)
[2019-07-31] MEDS: DOCUSATE SODIUM 250 MG CAPSULE PO SCH ×2 (07:52→20:20)
[2019-07-31] MEDS: FUROSEMIDE 20 MG TABLET PO SCH (07:52)
[2019-07-31] MEDS: DICLOFENAC SODIUM 1% 100 GM GEL [4GM] TP SCH ×3 (07:54→20:20)
[2019-07-31] MEDS: SPIRONOLACTONE 25 MG TABLET PO SCH (07:55)
[2019-07-31 15:53] VITALS: BP 123/53
[2019-07-31] MEDS: ACETAMINOPHEN 325 MG TABLET PO PRN (16:04)
[2019-07-31] MEDS: SENNA 187 MG TABLET PO SCH (20:20)
[2019-07-31] MEDS: MELATONIN 5 MG TABLET PO PRN (20:20)
[2019-08-01 04:54] VITALS: BP 141/87
[2019-08-01 08:27] VITALS: BP 138/82
[2019-08-01] MEDS: ATORVASTATIN CALCIUM 40 MG TABLET PO SCH (08:41)
[2019-08-01] MEDS: FAMOTIDINE 20 MG TABLET PO SCH (08:41)
[2019-08-01] MEDS: DICLOFENAC SODIUM 1% 100 GM GEL [4GM] TP SCH (08:41)
[2019-08-01] MEDS: CARVEDILOL 6.25 MG TABLET PO SCH (08:41)
[2019-08-01] MEDS: FLUTICASONE/VILANTEROL 200-25 MCG/INH INHALER [14] IH SCH (08:41)
[2019-08-01] MEDS: MULTIVITAMINS WITH MINERALS, THERAPEUTIC TABLET PO SCH (08:41)
[2019-08-01] MEDS: DOCUSATE SODIUM 250 MG CAPSULE PO SCH (08:42)
[2019-08-01] MEDS: ISOSORBIDE MONONITRATE 60 MG ER TABLET PO SCH (08:42)
[2019-08-01] MEDS: ASPIRIN 81 MG CHEWABLE TABLET PO SCH (08:42)
[2019-08-01] MEDS: FUROSEMIDE 20 MG TABLET PO SCH (08:42)
[2019-08-01] MEDS: SPIRONOLACTONE 25 MG TABLET PO SCH (08:42)
[2019-08-01] MEDS: GABAPENTIN 100 MG CAPSULE PO SCH (08:42)
[2019-08-01] MEDS: LISINOPRIL 10 MG TABLET PO SCH (08:43)
[2019-08-01] MEDS: CYANOCOBALAMIN 100 MCG TABLET PO SCH (08:43)
[2019-08-01] MEDS: ENOXAPARIN SODIUM 40 MG/0.4 ML PF SYRINGE SQ SCH (08:49)
[2019-08-01] MEDS ORDERED: ASPI-728 PO (11:10)
[2019-08-01] MEDS ORDERED: DOCU-342 PO (11:10)
[2019-08-01] MEDS ORDERED: FAMO20 PO (11:11)
[2019-08-01] MEDS ORDERED: CARV6 PO (11:12)
[2019-08-01] MEDS ORDERED: FURO20 PO (11:14)
[2019-08-01] MEDS ORDERED: LISI-661 PO (11:14)
[2019-08-01] MEDS ORDERED: MULT-248 PO (11:15)
[2019-08-01] MEDS ORDERED: SENN8.6T20 PO (11:16)
[2019-08-01] MEDS ORDERED: SULF500T60 PO (11:17)
[2019-08-01] MEDS ORDERED: SPIR25 PO (11:17)
[2019-08-01] MEDS ORDERED: DICL2100G TP (11:18)
== END 2019-08-01 11:58 | disposition home or self-care (01) | DRG 56 ==
LOC: 2WR 16:34
PROVIDERS: ADMIT Physical Medicine & Rehabilitation; ATTEND Physical Medicine & Rehabilitation
DX: I69.354 Hemiplegia and hemiparesis following cerebral infarction affecting left non-dominant side (principal); I63.9 Cerebral infarction, unspecified; I61.9 Nontraumatic intracerebral hemorrhage, unspecified; I63.511 Cerebral infarction due to unspecified occlusion or stenosis of right middle cerebral artery; I42.9 Cardiomyopathy, unspecified; E78.5 Hyperlipidemia, unspecified; I10 Essential (primary) hypertension; J44.9 Chronic obstructive pulmonary disease, unspecified; M06.9 Rheumatoid arthritis, unspecified; I45.9 Conduction disorder, unspecified; M19.90 Unspecified osteoarthritis, unspecified site; Z79.82 Long term (current) use of aspirin; Z83.3 Family history of diabetes mellitus; Z88.6 Allergy status to analgesic agent
CPT/HCPCS: 87081; 92507; 92526; 92610; 93005; 97110; 97112; 97116; 97163; 97166; 97530; 97535; 99366; 99368; J1650; J1885